=== PATIENT | female | born 1965 | race Caucasian/White ===

== ENCOUNTER 2016-07-05 06:38 | Day surgery (SDC) | payer OTHER ==
[~2016-07-05] VITALS: Ht 165.1 cm; Wt 68.2 kg
[~2016-07-05 06:38] MED LIST: SODIUM CHLORIDE 0.9% 1,000 ML IV ONE
[2016-07-05] MEDS ORDERED: LEVO100T4 PO (07:42)
[2016-07-05] MEDS ORDERED: SODIUM CHLORIDE 0.9% 1,000 ML IV ONE (08:00)
[2016-07-05] MEDS ORDERED: LIDOCAINE HCL/PF 1% 30 ML VIAL ONE ×2 (10:49→10:51)
[2016-07-05] MEDS ORDERED: MIDAZOLAM HCL 2 MG/2 ML VIAL ONE (10:50)
[2016-07-05] MEDS ORDERED: FentaNYL CITRATE-PF 100 MCG/2 ML VIAL ONE (10:50)
== END 2016-07-05 12:10 | disposition home or self-care (01) ==
LOC: SDS 06:38 → EDSTATUS 08:00 → SDS 12:10
PROVIDERS: ATTEND Radiology Diagnostic Radiology
DX: N63 Unspecified lump in breast (principal); E03.9 Hypothyroidism, unspecified; M54.9 Dorsalgia, unspecified; Z88.8 Allergy status to other drugs, medicaments and biological substances; Z72.89 Other problems related to lifestyle; Z98.890 Other specified postprocedural states; Z90.710 Acquired absence of both cervix and uterus
CPT/HCPCS: 19105; C2618; J3490; J7030; 76942; J2250; J3010